=== PATIENT | female | born 1960 | race Caucasian/White ===

== ENCOUNTER → 2018-03-15 | Outpatient (CLI) | payer OTHER | LOC: M.RAD 16:20 | DX: M51.36 Other intervertebral disc degeneration, lumbar region (principal); M43.12 Spondylolisthesis, cervical region; M25.552 Pain in left hip; M25.519 Pain in unspecified shoulder; V89.2XXA Person injured in unspecified motor-vehicle accident, traffic, initial encounter; Y93.89 Activity, other specified; Y92.89 Other specified places as the place of occurrence of the external cause; Y99.8 Other external cause status ==